=== PATIENT | female | born 1960 | race Caucasian/White ===

== ENCOUNTER 2020-11-29 16:56 | Observation (INO) ==
[2020-11-29] MEDS ORDERED: Ipratropium/Albuterol Neb 3 ML IH ONE (18:26)
[2020-11-29] MEDS ORDERED: Isovue-370 500 ML BOTTLE IVP ONE (18:26)
[2020-11-29 18:57] LABS: Bilirubin,Urine Negative (Negative); Blood,Urine Trace (Negative); Clarity,Urine Turbid (Clear); Color,Urine Red (Yellow); Glucose,Urine (UA) Normal (Normal); Ketones,Urine Negative (Negative); Leukocyte Esterase,Urine Negative (Negative); Nitrite,Urine Negative (Negative); Protein,Urine 50 mg/dL (Neg-Trace); Specific Gravity,Urine 1.018 (1.010-1.025); Urobilinogen,Urine Normal (Normal)
[2020-11-29 19:10] LABS: Basophils # 0.1 K/mcL (0.0-0.2); Basophils % 0.8 %; Eosinophils # 0.2 K/mcL (0.0-0.6); Eosinophils % 2.1 %; Hematocrit 43.5 % (35.3-44.9); Hemoglobin 13.7 g/dL (11.5-15.4); Immature Granulocytes % 0.3 % (0-4); Lymphocytes # 1.6 K/mcL (0.6-4.6); Lymphocytes % 22.9 %; Mean Corpuscular HGB Conc 31.5 g/dL (31.6-35.5); Mean Corpuscular Hemoglobin 30.4 pg (28.0-33.3); Mean Corpuscular Volume 96.5 fL (83.0-100.0); Mean Platelet Volume 9.6 fL (9.4-12.4); Monocytes # 0.4 K/mcL (0.0-1.3); Neutrophils # 4.9 K/mcL (1.6-8.9); Platelet Count 344 K/mcL (140-400); Red Blood Count 4.51 M/mcL (3.82-4.97); Segmented Neutrophils % 68.9 %; White Blood Count 7.2 K/mcL (4.3-11.1)
[2020-11-29 19:16] LABS: INR 0.8; Prothrombin Time 9.7 Seconds (9.4-12.1)
[2020-11-29 19:39] LABS: Alanine Aminotransferase 9 Units/L (7-52); Albumin/Globulin Ratio 1.6 (1.1-2.2); Alkaline Phosphatase 61 Units/L (34-104); Aspartate Amino Transferase 12 Units/L (13-39); BUN/Creatinine Ratio 14 (6-26); Bilirubin,Direct 0.2 mg/dL (0.0-0.2); Bilirubin,Indirect 0.3 mg/dL (0.0-1.0); Bilirubin,Total 0.5 mg/dL (0.3-1.0); Blood Urea Nitrogen 12 mg/dL (8-23); Calcium 9.4 mg/dL (8.6-10.3); Carbon Dioxide 26 mEq/L (23-29); Chloride 106 mEq/L (98-107); Globulin 2.5 g/dL (2.4-3.5); Glucose 92 mg/dL (70-105); Osmolality,Calculated 289 (280-300); Potassium 3.8 mEq/L (3.5-5.1); Sodium 140 mEq/L (136-145); Total Protein 6.5 g/dL (6.4-8.9); Troponin I < 0.03 ng/mL (< 0.04); eGFR For African Americans > 60 (> 60); eGFR For Non-African Americans > 60 (> 60)
[2020-11-29 21:44] LABS: Adenovirus Not Detected (Not Detect); Coronavirus 229E Not Detected (Not Detect); Coronavirus HKU1 Not Detected (Not Detect); Coronavirus NL63 Not Detected (Not Detect); Coronavirus OC43 Not Detected (Not Detect); SARS-CoV-2 Not Detected (Not Detect)
[2020-11-29 21:45] LABS: Bordetella Pertussis Not Detected (Not Detect); Chlamydophila pneumoniae Not Detected (Not Detect); Human Metapneumovirus Not Detected (Not Detect); Human Rhinovirus/Enterovirus DETECTED (Not Detect); Influenza A Subtype 2009 H1 Not Detected (Not Detect); Influenza B Not Detected (Not Detect); Mycoplasma pneumoniae Not Detected (Not Detect); Parainfluenza Virus 1 Not Detected (Not Detect); Parainfluenza Virus 2 Not Detected (Not Detect); Parainfluenza Virus 3 Not Detected (Not Detect); Parainfluenza Virus 4 Not Detected (Not Detect); Respiratory Syncytial Virus Not Detected (Not Detect)
[2020-11-29] MEDS ORDERED: Ondansetron ODT 4 MG TAB.RAPDIS SL PRN (22:51)
[2020-11-29] MEDS ORDERED: Acetaminophen 325 MG TABLET PO PRN (22:51)
[2020-11-29] MEDS ORDERED: Naloxone 0.4 MG/ML INJ IVP PRN (22:51)
[2020-11-29] MEDS ORDERED: Ipratropium/Albuterol Neb 3 ML IH PRN (23:01)
[2020-11-30] MEDS ORDERED: (Diclofenac Sodium [Voltaren] 100 GM Gel..Gram.) TP PRN (01:26)
[2020-11-30] MEDS ORDERED: *HR* HYDROcodone/Acet 5/325 mg TABLET PO PRN (01:52)
[2020-11-30 05:04] LABS: Basophils # 0.1 K/mcL (0.0-0.2); Basophils % 1.1 %; Eosinophils # 0.1 K/mcL (0.0-0.6); Eosinophils % 1.8 %; Hematocrit 38.9 % (35.3-44.9); Hemoglobin 12.2 g/dL (11.5-15.4); Immature Granulocytes % 0.1 % (0-4); Lymphocytes # 2.4 K/mcL (0.6-4.6); Lymphocytes % 31.5 %; Mean Corpuscular HGB Conc 31.4 g/dL (31.6-35.5); Mean Corpuscular Hemoglobin 30.1 pg (28.0-33.3); Mean Platelet Volume 9.8 fL (9.4-12.4); Monocytes # 0.5 K/mcL (0.0-1.3); Monocytes % 6.5 %; Neutrophils # 4.5 K/mcL (1.6-8.9); Platelet Count 314 K/mcL (140-400); Red Blood Count 4.05 M/mcL (3.82-4.97); Red Cell Distribution Width 14.8 % (11.5-14.5); White Blood Count 7.6 K/mcL (4.3-11.1)
[2020-11-30 05:24] LABS: BUN/Creatinine Ratio 13 (6-26); Blood Urea Nitrogen 11 mg/dL (8-23); Calcium 9.3 mg/dL (8.6-10.3); Carbon Dioxide 25 mEq/L (23-29); Chloride 107 mEq/L (98-107); Glucose 109 mg/dL (70-105); Osmolality,Calculated 290 (280-300); Potassium 3.6 mEq/L (3.5-5.1); Sodium 140 mEq/L (136-145); eGFR For African Americans > 60 (> 60); eGFR For Non-African Americans > 60 (> 60)
[2020-11-30 05:25] LABS: Chol/HDL Ratio 1.6 (0-4.9)
[2020-11-30] MEDS: hydrALAZINE 25 MG TABLET PO SCH ×3 (09:38→19:26)
[2020-11-30] MEDS: Fluticasone Propionate Nasal 50 MCG/SPRAY BOTTLE NS SCH (09:38)
[2020-11-30] MEDS: hydroCHLOROthiazide 25 MG TABLET PO SCH (09:39)
[2020-11-30] MEDS: Gabapentin 400 MG CAPSULE PO SCH ×3 (09:39→19:26)
[2020-11-30] MEDS: valACYclovir 500 MG TABLET PO SCH ×2 (09:39→19:26)
[2020-11-30] MEDS: atenoloL 50 MG TABLET PO SCH (09:39)
[2020-11-30] MEDS: Budesonide/Formoterol 160/4.5 1 PUFF INH IH SCH ×2 (11:08→20:31)
[2020-11-30] MEDS: *HR* HYDROcodone/Acet 5/325 mg TABLET PO PRN (14:28)
[2020-11-30] MEDS ORDERED: Nicotine 21 MG PATCH.TD24 TD PRN (14:56)
[2020-11-30] MEDS: *HR* Heparin 5,000 UNIT/ML VIAL SQ SCH (18:20)
[2020-12-01] MEDS: *HR* Heparin 5,000 UNIT/ML VIAL SQ SCH ×2 (05:01→17:24)
[2020-12-01] MEDS ORDERED: Isovue-300 50ML VIAL ONE ×2 (07:04→17:20)
[2020-12-01] MEDS: Budesonide/Formoterol 160/4.5 1 PUFF INH IH SCH (07:47)
[2020-12-01] MEDS: hydrALAZINE 25 MG TABLET PO SCH ×2 (08:24→16:09)
[2020-12-01] MEDS: atenoloL 50 MG TABLET PO SCH (08:24)
[2020-12-01] MEDS: Fluticasone Propionate Nasal 50 MCG/SPRAY BOTTLE NS SCH (08:24)
[2020-12-01] MEDS: hydroCHLOROthiazide 25 MG TABLET PO SCH (08:24)
[2020-12-01] MEDS: valACYclovir 500 MG TABLET PO SCH (08:24)
[2020-12-01] MEDS: Gabapentin 400 MG CAPSULE PO SCH ×2 (08:24→16:09)
[2020-12-01 08:33] LABS: Basophils # 0.1 K/mcL (0.0-0.2); Basophils % 0.9 %; Eosinophils # 0.2 K/mcL (0.0-0.6); Eosinophils % 2.2 %; Hematocrit 40.6 % (35.3-44.9); Hemoglobin 13.2 g/dL (11.5-15.4); Immature Granulocytes % 0.3 % (0-4); Lymphocytes # 2.2 K/mcL (0.6-4.6); Lymphocytes % 28.1 %; Mean Corpuscular HGB Conc 32.5 g/dL (31.6-35.5); Mean Corpuscular Hemoglobin 31.2 pg (28.0-33.3); Mean Platelet Volume 9.6 fL (9.4-12.4); Monocytes # 0.5 K/mcL (0.0-1.3); Monocytes % 6.1 %; Neutrophils # 4.8 K/mcL (1.6-8.9); Platelet Count 317 K/mcL (140-400); Red Blood Count 4.23 M/mcL (3.82-4.97); Red Cell Distribution Width 14.7 % (11.5-14.5); Segmented Neutrophils % 62.4 %; White Blood Count 7.7 K/mcL (4.3-11.1)
[2020-12-01] MEDS: *HR* HYDROcodone/Acet 5/325 mg TABLET PO PRN (12:04)
[2020-12-01] MEDS ORDERED: Lidocaine -MPF 2% 2 ML VIAL ONE ×2 (17:25→17:30)
[2020-12-01] MEDS ORDERED: *HR* FentaNYL (PF) 100 MCG/2 ML VIAL ONE ×2 (17:25→17:30)
[2020-12-01] MEDS ORDERED: *HR* Propofol 200 MG/20 ML VIAL IVP ONE ×2 (17:25→17:30)
[2020-12-01] MEDS ORDERED: Dexamethasone 4 MG/ML VIAL ONE (17:25)
[2020-12-01] MEDS ORDERED: Ondansetron 4 MG/2 ML VIAL ONE ×2 (17:25→17:30)
[2020-12-01] MEDS ORDERED: Famotidine 20 MG/2 ML VIAL ONE (17:46)
[2020-12-01] MEDS ORDERED: Clindamycin 900 MG/50 ML 900 MG/50 ML IV.SOLN IVPB ONE (17:54)
[2020-12-01] MEDS ORDERED: EPHEDrine 50 MG/ML VIAL ONE (18:08)
[2020-12-01] MEDS ORDERED: Ondansetron ODT 4 MG TAB.RAPDIS SL PRN (19:00)
[2020-12-01] MEDS ORDERED: Nicotine 21 MG PATCH.TD24 TD PRN (19:00)
[2020-12-01] MEDS ORDERED: Acetaminophen 325 MG TABLET PO PRN (19:00)
[2020-12-01] MEDS ORDERED: *HR* HYDROcodone/Acet 5/325 mg TABLET PO PRN (19:00)
[2020-12-01] MEDS ORDERED: Ipratropium/Albuterol Neb 3 ML IH PRN (19:00)
[2020-12-01] MEDS ORDERED: Naloxone 0.4 MG/ML INJ IVP PRN (19:00)
[2020-12-01] MEDS ORDERED: Gabapentin 400 MG CAPSULE PO SCH (21:00)
[2020-12-01] MEDS ORDERED: hydrALAZINE 25 MG TABLET PO SCH (21:00)
[2020-12-01] MEDS ORDERED: valACYclovir 500 MG TABLET PO SCH (21:00)
[2020-12-01 21:14] VITALS: BP 158/75
[2020-12-01] MEDS ORDERED: Budesonide/Formoterol 160/4.5 1 PUFF INH IH SCH (22:00)
[2020-12-02] MEDS ORDERED: *HR* Heparin 5,000 UNIT/ML VIAL SQ SCH (06:00)
[2020-12-02] MEDS ORDERED: Fluticasone Propionate Nasal 50 MCG/SPRAY BOTTLE NS SCH (09:00)
[2020-12-02] MEDS ORDERED: atenoloL 50 MG TABLET PO SCH (09:00)
[2020-12-02] MEDS ORDERED: hydroCHLOROthiazide 25 MG TABLET PO SCH (09:00)
[2020-12-05 10:06] LABS: Calculi Mass 27 mg
== END 2020-12-01 21:53 | disposition home or self-care (01) ==
LOC: 3ANU 16:56 → EMEROOARM 16:56 → SUATTDRO 22:32 → 3ANU 11-30 00:07
PROVIDERS: ADMIT Family Medicine; ATTEND Internal Medicine

== ENCOUNTER 2021-03-23 19:03 | Observation (INO) ==
[2021-03-23] MEDS ORDERED: Furosemide 40 MG/4 ML VIAL IVP ONE (21:23)
[2021-03-23] MEDS: rOPINIRole 1 MG TABLET PO SCH (21:59)
[2021-03-23 22:01] LABS: Basophils # 0.1 K/mcL (0.0-0.2); Basophils % 0.9 %; Eosinophils # 0.1 K/mcL (0.0-0.6); Eosinophils % 1.8 %; Hematocrit 37.2 % (35.3-44.9); Hemoglobin 11.9 g/dL (11.5-15.4); Immature Granulocytes % 0.3 % (0-4); Lymphocytes # 1.6 K/mcL (0.6-4.6); Lymphocytes % 21.4 %; Mean Corpuscular Hemoglobin 30.3 pg (28.0-33.3); Mean Corpuscular Volume 94.7 fL (83.0-100.0); Mean Platelet Volume 10.1 fL (9.4-12.4); Monocytes # 0.5 K/mcL (0.0-1.3); Monocytes % 6.2 %; Neutrophils # 5.2 K/mcL (1.6-8.9); Platelet Count 318 K/mcL (140-400); Red Blood Count 3.93 M/mcL (3.82-4.97); Red Cell Distribution Width 13.6 % (11.5-14.5); Segmented Neutrophils % 69.4 %; White Blood Count 7.4 K/mcL (4.3-11.1)
[2021-03-23 22:22] LABS: Alanine Aminotransferase 8 Units/L (7-52); Albumin 3.8 g/dL (3.5-5.7); Albumin/Globulin Ratio 1.7 (1.1-2.2); Alkaline Phosphatase 56 Units/L (34-104); Aspartate Amino Transferase 10 Units/L (13-39); BUN/Creatinine Ratio 21 (6-26); Bilirubin,Direct 0.1 mg/dL (0.0-0.2); Bilirubin,Indirect 0.2 mg/dL (0.0-1.0); Bilirubin,Total 0.3 mg/dL (0.3-1.0); Blood Urea Nitrogen 17 mg/dL (8-23); Calcium 8.9 mg/dL (8.6-10.3); Carbon Dioxide 29 mEq/L (23-29); Chloride 107 mEq/L (98-107); Globulin 2.3 g/dL (2.4-3.5); Glucose 91 mg/dL (70-105); Osmolality,Calculated 295 (280-300); Potassium 3.7 mEq/L (3.5-5.1); Sodium 142 mEq/L (136-145); Total Protein 6.1 g/dL (6.4-8.9); Troponin I < 0.03 ng/mL (< 0.04); eGFR For African Americans > 60 (> 60); eGFR For Non-African Americans > 60 (> 60)
[2021-03-23 23:06] LABS: Bilirubin,Urine Negative (Negative); Blood,Urine Negative (Negative); Clarity,Urine Clear (Clear); Color,Urine Light-Yellow (Yellow); Glucose,Urine (UA) Normal (Normal); Ketones,Urine Negative (Negative); Leukocyte Esterase,Urine Negative (Negative); Nitrite,Urine Negative (Negative); Protein,Urine Negative (Neg-Trace); Specific Gravity,Urine 1.013 (1.010-1.025); Urobilinogen,Urine Normal (Normal)
[2021-03-24] MEDS ORDERED: Naloxone 0.4 MG/ML INJ IVP PRN (01:03)
[2021-03-24 06:13] LABS: Basophils # 0.1 K/mcL (0.0-0.2); Basophils % 0.9 %; Eosinophils # 0.1 K/mcL (0.0-0.6); Eosinophils % 1.9 %; Hematocrit 34.8 % (35.3-44.9); Hemoglobin 11.3 g/dL (11.5-15.4); Immature Granulocytes % 0.1 % (0-4); Lymphocytes # 1.9 K/mcL (0.6-4.6); Lymphocytes % 27.8 %; Mean Corpuscular HGB Conc 32.5 g/dL (31.6-35.5); Mean Corpuscular Hemoglobin 29.9 pg (28.0-33.3); Mean Corpuscular Volume 92.1 fL (83.0-100.0); Mean Platelet Volume 9.9 fL (9.4-12.4); Monocytes # 0.5 K/mcL (0.0-1.3); Neutrophils # 4.2 K/mcL (1.6-8.9); Platelet Count 291 K/mcL (140-400); Red Blood Count 3.78 M/mcL (3.82-4.97); Red Cell Distribution Width 13.3 % (11.5-14.5); Segmented Neutrophils % 62.3 %; White Blood Count 6.7 K/mcL (4.3-11.1)
[2021-03-24 06:59] LABS: Alanine Aminotransferase 7 Units/L (7-52); Albumin 3.5 g/dL (3.5-5.7); Albumin/Globulin Ratio 1.7 (1.1-2.2); Alkaline Phosphatase 52 Units/L (34-104); Aspartate Amino Transferase 10 Units/L (13-39); BUN/Creatinine Ratio 19 (6-26); Bilirubin,Total 0.4 mg/dL (0.3-1.0); Blood Urea Nitrogen 16 mg/dL (8-23); Calcium 8.6 mg/dL (8.6-10.3); Carbon Dioxide 30 mEq/L (23-29); Chloride 104 mEq/L (98-107); Globulin 2.1 g/dL (2.4-3.5); Glucose 97 mg/dL (70-105); Osmolality,Calculated 293 (280-300); Potassium 3.2 mEq/L (3.5-5.1); Sodium 141 mEq/L (136-145); Total Protein 5.6 g/dL (6.4-8.9); eGFR For African Americans > 60 (> 60); eGFR For Non-African Americans > 60 (> 60)
[2021-03-24] MEDS: Furosemide 40 MG TABLET PO SCH (07:48)
[2021-03-24] MEDS ORDERED: Ondansetron 4 MG/2 ML VIAL IVP PRN (10:34)
[2021-03-24] MEDS ORDERED: Acetaminophen 325 MG TABLET PO PRN (10:34)
[2021-03-24] MEDS ORDERED: *HR* HYDROcodone/Acet 5/325 mg TABLET PO PRN (10:34)
[2021-03-24] MEDS ORDERED: Potassium Chloride Elixir 20 MEQ/15 ML UDC PO ONE (10:36)
[2021-03-24] MEDS ORDERED: Perflutren Lipid Microsphere 1.3 ML in 0.9 % Sodium Chloride 8.7 ML IVP PRN (10:36)
[2021-03-24] MEDS ORDERED: Ipratropium/Albuterol Neb 3 ML IH PRN (10:42)
[2021-03-24] MEDS: predniSONE 20 MG TABLET PO SCH (12:11)
[2021-03-24] MEDS ORDERED: tiZANidine 4 MG TABLET PO PRN (15:18)
[2021-03-24] MEDS: carvediloL 6.25 MG TABLET PO SCH (15:51)
[2021-03-24] MEDS: hydrALAZINE 25 MG TABLET PO SCH ×2 (15:51→19:43)
[2021-03-24] MEDS: Gabapentin 400 MG CAPSULE PO SCH ×2 (15:51→19:43)
[2021-03-24] MEDS ORDERED: Isovue-370 500 ML BOTTLE IVP ONE (16:31)
[2021-03-24] MEDS: Nicotine 21 MG PATCH.TD24 TD SCH (17:16)
[2021-03-24] MEDS: valACYclovir 500 MG TABLET PO SCH (19:42)
[2021-03-24] MEDS: rOPINIRole 1 MG TABLET PO SCH (19:43)
[2021-03-24] MEDS: Budesonide/Formoterol 160/4.5 1 PUFF INH IH SCH (20:48)
[2021-03-25 07:22] LABS: Basophils % 0.2 %; Eosinophils % 0.1 %; Hematocrit 36.4 % (35.3-44.9); Hemoglobin 11.8 g/dL (11.5-15.4); Immature Granulocytes % 0.3 % (0-4); Lymphocytes # 1.3 K/mcL (0.6-4.6); Lymphocytes % 11.2 %; Mean Corpuscular HGB Conc 32.4 g/dL (31.6-35.5); Mean Corpuscular Hemoglobin 29.7 pg (28.0-33.3); Mean Corpuscular Volume 91.7 fL (83.0-100.0); Mean Platelet Volume 9.9 fL (9.4-12.4); Monocytes # 0.6 K/mcL (0.0-1.3); Monocytes % 4.7 %; Neutrophils # 9.9 K/mcL (1.6-8.9); Platelet Count 293 K/mcL (140-400); Red Blood Count 3.97 M/mcL (3.82-4.97); Red Cell Distribution Width 13.2 % (11.5-14.5); Segmented Neutrophils % 83.5 %; White Blood Count 11.8 K/mcL (4.3-11.1)
[2021-03-25] MEDS: Budesonide/Formoterol 160/4.5 1 PUFF INH IH SCH (08:04)
[2021-03-25 08:25] LABS: BUN/Creatinine Ratio 22 (6-26); Blood Urea Nitrogen 19 mg/dL (8-23); Calcium 9.3 mg/dL (8.6-10.3); Carbon Dioxide 33 mEq/L (23-29); Chloride 104 mEq/L (98-107); Glucose 98 mg/dL (70-105); Magnesium 2.1 mg/dL (1.6-2.6); Osmolality,Calculated 294 (280-300); Phosphorous 4.5 mg/dL (2.7-4.5); Potassium 3.7 mEq/L (3.5-5.1); Sodium 141 mEq/L (136-145); eGFR For African Americans > 60 (> 60); eGFR For Non-African Americans > 60 (> 60)
[2021-03-25] MEDS: Gabapentin 400 MG CAPSULE PO SCH ×2 (09:50→15:21)
[2021-03-25] MEDS: predniSONE 20 MG TABLET PO SCH (09:50)
[2021-03-25] MEDS: Furosemide 40 MG TABLET PO SCH (09:50)
[2021-03-25] MEDS: hydrALAZINE 25 MG TABLET PO SCH ×2 (09:50→15:21)
[2021-03-25] MEDS: carvediloL 6.25 MG TABLET PO SCH (09:50)
[2021-03-25] MEDS: valACYclovir 500 MG TABLET PO SCH (09:50)
[2021-03-25] MEDS: Nicotine 21 MG PATCH.TD24 TD SCH (09:51)
[2021-03-25 11:06] VITALS: BP 96/58
== END 2021-03-25 15:47 | disposition home or self-care (01) ==
LOC: 3ANU 19:03 → EMEROOARM 19:03 → SUATTDRO 03-24 00:18 → 3ANU 03-24 02:59
PROVIDERS: ADMIT Family Medicine; ATTEND Internal Medicine